=== PATIENT | male | born 1960 | race Caucasian/White ===

== ENCOUNTER → 2024-12-20 08:51 | Outpatient (BNVA) | payer MEDICAID, SELFPAY | PROVIDERS: Visit Provider Orthopaedic Surgery | DX: M79.642 Pain in left hand (principal); M79.641 Pain in right hand; M25.532 Pain in left wrist | CPT/HCPCS: 73130 ==

== ENCOUNTER → 2024-12-27 09:19 | Outpatient (BNVA) | payer MEDICAID, SELFPAY | PROVIDERS: PCP Family Medicine; Visit Provider Orthopaedic Surgery | DX: M23.51 Chronic instability of knee, right knee (principal); M25.561 Pain in right knee; M25.562 Pain in left knee | CPT/HCPCS: 73560; 73565 ==

== ENCOUNTER → 2025-01-19 08:50 | Outpatient (BNVA) | payer MEDICAID, SELFPAY | PROVIDERS: PCP Family Medicine; Visit Provider Family Medicine | DX: Z01.818 Encounter for other preprocedural examination (principal) | CPT/HCPCS: 81003 ==

== ENCOUNTER 2025-01-26 12:47 | Observation (INO) | payer MEDICAID, SELFPAY ==
[2025-01-26] VITALS (14 sets, daily range): BP systolic 96–189; BP diastolic 42–116; PULSE 65–77; RESP 16–18; TEMP 36.2–36.7; O2SAT 90–97; BMI 37.2
[2025-01-26 09:29] LABS: Basophils # 0.1 10^3/uL (0.0-0.1); Basophils % 0.7 %; Eosinophils # 0.4 10^3/uL (0.0-0.8); Eosinophils % 4.1 %; Hematocrit 45.3 % (37-53); Lymphocytes # 2.6 10^3/uL (0.8-4.8); Lymphocytes % 24.7 %; Mean Corpuscular HGB Conc 32.2 g/dL (30-55); Mean Corpuscular Hemoglobin 29.5 pg (27-33); Mean Corpuscular Volume 91.5 fl (82-101); Monocytes # 0.9 10^3/uL (0.2-0.9); Monocytes % 8.6 %; Neutrophils # 6.39 10^3/uL (1.8-7.7); Neutrophils % 60.9 %; Nucleated Red Blood Cells % 0 %; Platelet Count 327 10^3/cmm (157-399); Red Blood Count 4.95 10^6/uL (3.85-5.65); Red Cell Distribution Width 13.3 % (12.1-15.1); White Blood Count 10.48 10^3/uL (3.29-11.43)
--- NOTE | 2025-01-26 09:29 | W.PM.OPSUD ---
Surgery/Procedure H&P Update DATE OF PROCEDURE: January 26, 2025 DATE H&P PERFORMED: 01/26/25 H&P UPDATE INFORMATION: I have reviewed H&P completed within last 30 days, I have examined patient prior to procedure, No changes to prior documentation and Risks and benefits of the procedure reviewed PREOP DIAGNOSIS: End-stage degenerative joint disease of the right knee PLANNED PROCEDURE: Operation Date: 01/26/25 10:35 Proposed Procedures p RIGHT Total Knee Arthroplasty(Right) - Ludin Amaya MD
[2025-01-26] MEDS: sodium chloride 0.9% 1,000 ML 30 ML IV (09:48)
[2025-01-26 10:00] LABS: Anion Gap 15.2 (5-19); Blood Urea Nitrogen 14 mg/dL (8-23); Calcium 9.7 mg/dL (8.5-10.5); Carbon Dioxide 27 mmol/L (22-29); Chloride 102 mmol/L (98-107); Creatinine Clr Calc Pharmacy 130.6128; Glomerular Filtration Rate 113.9 mL/min (90-130); Glucose 111 mg/dL (65-115); Osmolality Calculated 289 mOsm/kg (285-295); Potassium 5.2 mmol/L (3.5-5.1); Sodium 139 mmol/L (136-145)
[2025-01-26] MEDS: ceFAZolin 2,000 mg SDV 2000 MG IVP ×2 (10:07→17:16)
--- NOTE | 2025-01-26 12:02 | XR_ITS ---
WS: [id number] Exam: XR knee RT 1-2V [id number] Date/Time of Exam: 01/26/2025 12:02 PM Reason For Exam: Total knee arthroplasty on the right Comparison 12/27/2024. A RIGHT total knee replacement is in satisfactory position. Postoperative changes in the adjacent soft tissues. Anterior surgical skin clips. XR/XR knee RT 1-2V [id number] IMPRESSION: 1. RIGHT total knee replacement in satisfactory position.
--- NOTE | 2025-01-26 12:14 | P.OP_ITS ---
Operative Report Date of procedure: January 26, 2025 Surgeon: Ludin Amaya MD Procedure: Preoperative diagnosis: End-stage degenerative joint disease of the right knee Postop diagnosis: Same Procedure: Right total knee arthroplasty Surgeon: Ludin Amaya MD Commercial Marketing Specialist: KYLEE Negrete's assistance was needed for positioning patient, assistance during the procedure itself. Closure of the wound and transfer the patient back to the PACU Anesthesia: Spinal Tourniquet time: 47 minutes at 250 mmHg EBL: 100 cc Indications: Mr. Lopez is a 64-year-old white male who presented the orthopedic clinics with debilitating right knee pain. He has been fighting this for quite some time now has been taking Diflucan for pain but this is not handling at this time. X-ray findings demonstrate [id number] presentation medial compartment osteoarthritic changes throughout the knee. He has failed all conservative measures and therefore at this time is been offered a total knee arthroplasty. All risk benefits treatment alternatives have been discussed with him and he is agreeable to proceed with surgical intervention at this time. Procedure: After obtaining the consent patient was transported to the operating room and placed on the operative table supine position. Subsequently spinal anesthetic was administered. Once Konieczny was achieved patient placed in a supine position. Pneumatic cuff placed around proximal right leg. And right leg was prepped and draped usual fashion. After surgical timeout and gravity exsanguination the pneumatic cuff is inflated 250 mmHg. With the foot in a foot holding device the knee was held in a flexed 90 degrees. Longitudinal incision made down the midline from superior pole the patella down the tibial tubercle. Sharp dissection taken down to the subcutaneous tissues electrocautery used for hemostasis. Knee was opened up along medial parapatellar incision line. Soft tissue was sharply breed including fat pad ACL and anterior horns of the menisci. Capsule was stripped from the medial portion of the proximal tibia to expose the knee further. Knee was then put up to full extension and patella was everted. Tissue was debrided around its periphery with electrocautery. Osteophytes were removed with a rongeur. Subsequently a patella reaming male was positioned and patella was reamed to 14 mm thickness. Knee was then flexed back to 90 degrees and patella put in the lateral gutter. Appropriate retractors placed including a PCL retractor to expose the proximal tibia. Tibial cutting guide was position with appropriate posterior slope. Set at a 2 mm cut off the most affected side that being medial. Once pinned in place and a small osteotome placed through the top of the tibial plateau and from the PCL to protect it a sagittal saw was then used to make tibial cut. Tibial cut was then removed piecemeal after box cut was made around the PCL insertion with a small osteotome. Once these were removed. PCL retractor was removed. Drill holes placed through the distal femur just anterior to the intercondylar notch. Guide winnie was then placed up the interventionally canal and distal cutting block to the femur was positioned and pinned in place. Distal cuts of the femur were made without any difficulties. Excess bone was removed rongeurs. Distal femur sized to size 9 femoral cutting block. Drill holes were placed for cutting block pegs. Size 9 cutting block was placed on the distal femur. Anterior posterior and chamfer cuts were made without any difficulties. Again excess osteophytes were removed with rongeur's. PCL retractor was placed again back into the knee exposing the proximal tibia. Excess soft tissues including menisci were completely removed from the joint line as they were well as any bone fragments. Knee is washed coachman out the Pulsavac irrigation at this point. Tibia size a size F tibial tray. It was positioned with an external guide winnie and then pinned in place. At this point a trial size 9 femur was p laced and impacted. Size 10 spacer was placed on the tibial tray of the hip and pinned in place in the posterior range of motion found to be stable, able to reach full extension as well as full flexion. No instability on varus valgus stressing. At this point trial components removed after drill holes placed with the distal femur trial. Once in place tibial tray trial was left in place drill holes were placed through the peg holes of the eventual permanent component. Punch was also used to make intramedullary canal for the post for the tibial component. These were all removed subsequently a permanent size F tibial tray was impacted. Subsequently a size 9 permanent implant was placed over the distal femur with the peg holes into the drill holes and impacted. Size 10 polyethylene spacer was then placed on the tray and locked in place. Knee put the range of motion under stable. With the leg up to full extension patella was everted. It was sized to size 38 patellar button. Drill guide was placed on the area 3. Drill holes placed. Subsequently 3 peg porous ingrowth patella was placed on the posterior patella and impacted with a patellar clamp. Once in place knee was put through range of motion found to be stable with good patellar tracking. Knee again was washed close not supposed advise irrigation. At this point pneumatic cuff is deflated after 47 minutes total tourniquet time and electrocautery used for hemostasis. Knee is placed on knee bump to allow for some slight flexion. Extensor mechanism repair with #1 Vicryl [id number] sutures. Subcutaneous tissue reapproximated 0 Vicryl interrupted sutures. Skin was closed with skin mariana. Wounds were cleaned and dried dressed with Silverlon occlusive dressing. Patient was then awaken transferred to cover room in stable condition
--- NOTE | 2025-01-26 12:51 | ANES.PREANE2 ---
Pre-Anesthetic Assessment Height/Weight: Height 1.73 m Weight 111.13 kg Temp Pulse Resp BP Pulse Ox O2 Del Method O2 Flow Rate 97.4 F L 66 16 135/72 97 Nasal Cannula 3 01/26/25 12:44 01/26/25 12:44 01/26/25 12:44 01/26/25 12:44 01/26/25 12:44 01/26/25 12:44 01/26/25 12:38 FiO2 3 01/26/25 12:44 Preop Diagnosis: End-stage degenerative joint disease of the right knee Operation Date: 01/26/25 10:35 Proposed Procedures p RIGHT Total Knee Arthroplasty(Right) - Ludin Amaya MD Familial anesthetic complications: None Was Beta Annie taken within 24 hours: N/A Was Clonidine taken within 24 hours: N/A Last intake: Intake Last Liquid Date 01/25/25 Last Liquid Time 22:00 Last Solid Date 01/25/25 Last Solid Time 20:30 Social Tobacco and No alcohol Exam alert, oriented x 3, clear to auscultation bilaterally and regular rate & rhythm CV/HEM Hypertension Anesthetic Plan ASA status: 3 Anesthesia: Regional (specify below) Risk of > 500 ml blood loss (7ml/kg in children): No Medications/Allergies Home Medications ?Medication ?Instructions ?Recorded ?Confirmed ?Last Taken ?Type diclofenac sodium 25 mg 25 mg PO BID 01/19/25 01/26/25 01/24/25 History tablet,delayed release losartan 50 mg tablet 50 mg PO DAILY 01/19/25 01/26/25 01/25/25 History Allergies Allergy/AdvReac Type Severity Reaction Status Date / Time No Known Allergies Allergy Verified 01/26/25 09:03 Current Medications Generic Name Dose Route Start Last Admin Trade Name Freq PRN Reason Stop Dose Admin Sodium Chloride 1,000 mls @ 30 mls/hr 01/26/25 09:00 01/26/25 11:00 Sodium Chloride 0.9% IV 01/27/25 08:59 Infused .Q24H GABRIELA Infusion PFSH Anesthesia Social History Smoking and tobacco/nicotine status: current every day tobacco/nicotine user Data Anesthesia 01/26/25 09:22 01/26/25 09:22 Short CBC 01/26/25 Range/Units 09:22 WBC 10.48 (3.29-11.43) 10^3/uL Hgb 14.60 (11.27-16.99) g/dL Hct 45.3 (37-53) % MCV 91.5 (82-101) fl Plt Count 327 (157-399) 10^3/cmm Neut % (Auto) 60.9 % Neut # (Auto) 6.39 (1.8-7.7) 10^3/uL BMP 01/26/25 09:22 Sodium 139 Potassium 5.2 H Chloride 102 Carbon Dioxide 27 BUN 14 Creatinine 0.7 Glucose 111 Calcium 9.7
--- NOTE | 2025-01-26 12:51 | SUR.PHASEI ---
Pt asked nurse Are you as kinky as your hair? Pt wagged finger at a nurse in a come here motion. The nurse came to bedside and asked what she could do for the pt. He stated I made you come with one finger.
--- NOTE | 2025-01-26 12:52 | ANES.PROC ---
Anesthesia Procedures Procedure/Date: 01/26/25 Nerve Block ^: Nerve Block 1: Main Anesthesia: spinal anesthesia block Time Out Performed: Yes Consent: requested by attending/covering physician Nerve block location: adductor canal (R) Anesthesia monitors applied: pulse oximetry, EKG, BP cuff and oxygen Nerve block position: supine Anesthetic Used: ropivicaine 0.5% (30 ml) and with decadron (4 mg) Ultrasound used to: recognize landmarks and visualize and ID femerol nerve Interscalene/Femoral BLK: 4 stimuplex 21 g needle used for position and inplane approach, visualize local anesthetic spread and no vascular puncture identified Injection: neg aspiration of heme Patient Tolerated Procedure: well Complications: none
--- NOTE | 2025-01-26 12:55 | ANE.PACU2 ---
Inpatient post-anesthesia follow up: Airway intact: Yes Vital signs: Temperature 97.1 F Pulse Rate 67 Respiratory Rate 16 Blood Pressure 143/78 Pulse Oximetry 93 Oxygen Delivery Me thod Room Air Oxygen Flow Rate 3 Fraction of Inspir ed Oxygen 3 Hydration adequate: Yes Nausea and vomiting: No Pain level: 1 Mental status: Baseline
--- NOTE | 2025-01-26 13:48 | PM.CONSULT ---
Providers/Reason For Consult Consulting Physician/Specialty*: Internal Medicine/Sydnie Colvin MD Reason for Consult*: Medical management of blood pressure Attending Physician: Ludin Amaya MD Primary Care Provider: Raúl Godwin History of Present Illness History of Present Illness Jordy Lopez is a 64 year old male with history of hypertension underwent right total knee replacement today. Medicine has been requested to follow for medical management Patient seen and room sitting up in bed. States he is doing well however is having pain in his knee. Has no other complaints at this time. Medications/Allergies Home Medications ?Medication ?Instructions ?Recorded ?Confirmed ?Last Taken ?Type diclofenac sodium 25 mg 25 mg PO BID 01/19/25 01/26/25 01/24/25 History tablet,delayed release losartan 50 mg tablet 50 mg PO DAILY 01/19/25 01/26/25 01/25/25 History Allergies Allergy/AdvReac Type Severity Reaction Status Date / Time No Known Allergies Allergy Verified 01/26/25 09:03 PFSH Acute PFSH: Social History Smoking and tobacco/nicotine status: current every day tobacco/nicotine user Vitals/I&O/Wt Last Vital Signs Temp 97.4 F L 01/26/25 12:44 Pulse 66 01/26/25 12:44 Resp 16 01/26/25 12:44 BP 135/72 01/26/25 12:44 Pulse Ox 97 01/26/25 12:44 O2 Del Method Room Air 01/26/25 12:59 O2 Flow Rate 3 01/26/25 12:38 FiO2 3 01/26/25 12:44 01/25/25 01/26/25 01/26/25 22:59 06:59 14:59 Intake Total 1700 / 1700 Output Total 75 / 75 Balance 1625 / 1625 Weight last 48 hrs Weight 111.13 kg Physical Exam Narrative: General: Alert oriented x3, patient seen sitting up in bed stating he has knee pain. HEENT: Normocephalic, atraumatic, EOMI, breathing room air Cardio: Regular rate rhythm, normal S1-S2, Respiratory: Good bilateral air entry, no wheezes no rhonchi appreciated GI: Abdomen soft, nontender, nondistended, bowel sounds + Extremities: Right knee covered in surgical bandage Frantz wrap, pulses present bilateral lower extremities. Data 01/26/25 09:22 01/26/25 09:22 A&P Assessment and plan (1) Hypertension: (2) Arthritis of right knee: (3) S/P total knee arthroplasty: Plan #Status post right total knee arthroplasty #History of arthritis right knee #Hypertension ? Continue home losartan 50 daily ? Check CBC BMP in a.m. ? Morphine 4 mg before hours as needed ? Ketorolac 15 mg every 6 hours as needed ? Hydrocodone 1 to 2 tablets every 4 hours as needed ? Aspirin 325 daily for DVT prophylaxis ? Patient has received empiric antibiotics cefazolin coverage. ? Medicine will be available to assist with any medical issues as they may arise. ? PT OT ? Discharge as per primary team instructions Thank you for this consultation. PDMP PDMP Reviewed: Not Reviewed Consult Attestations Medical Necessity Statement: Defer to primary team Diagnoses Hypertension I10 Arthritis of right knee M17.11 S/P total knee arthroplasty Z96.659
[2025-01-26] MEDS: acetaminophen 500 mg Tablet 1000 MG PO ×2 (14:16→21:32)
[2025-01-26] MEDS: ketorolac 30 mg/mL INJ 15 MG IVP (14:16)
[2025-01-26] MEDS: HYDROcodone-acetaminophen 7.5-325 mg Tablet PO ×2 (15:51→21:32)
[2025-01-26] MEDS: chlorhexidine gluconate 0.12% Btl 473 mL 30 ML MUCOUS MEM ×2 (17:13→21:35)
[2025-01-26] MEDS: sennosides-docusate Tablet 2 TAB PO (17:14)
[2025-01-26] MEDS: calcium carbonate 500 mg Chew Tablet 1000 MG PO (17:14)
[2025-01-26] MEDS: iron polysaccharide complex 150 mg Capsule PO (17:15)
[2025-01-26] MEDS: nicotine 21 mg Patch 1 PATCH TRANSDERMA (21:31)
[2025-01-27] VITALS (9 sets, daily range): BP systolic 167–202; BP diastolic 91–97; PULSE 70–78; RESP 16–18; TEMP 36.4–36.9; O2SAT 92–94
[2025-01-27] MEDS: ceFAZolin 2,000 mg SDV 2000 MG IVP ×2 (03:52→11:18)
[2025-01-27] MEDS: lactated ringers 1,000 ML 100 ML IV (03:58)
[2025-01-27] MEDS: HYDROcodone-acetaminophen 7.5-325 mg Tablet PO ×3 (04:03→18:24)
[2025-01-27 05:17] LABS: Basophils % 0.2 %; Hematocrit 37.1 % (37-53); Lymphocytes # 1.7 10^3/uL (0.8-4.8); Lymphocytes % 12.7 %; Mean Corpuscular HGB Conc 32.3 g/dL (30-55); Mean Corpuscular Hemoglobin 29.7 pg (27-33); Mean Corpuscular Volume 91.8 fl (82-101); Mean Platelet Volume 10.5 fL (7.4-10.4); Monocytes # 1.2 10^3/uL (0.2-0.9); Monocytes % 9.1 %; Neutrophils # 10.44 10^3/uL (1.8-7.7); Neutrophils % 77.3 %; Nucleated Red Blood Cells % 0 %; Platelet Count 304 10^3/cmm (157-399); Red Blood Count 4.04 10^6/uL (3.85-5.65); Red Cell Distribution Width 13.1 % (12.1-15.1); White Blood Count 13.52 10^3/uL (3.29-11.43)
[2025-01-27 05:39] LABS: Anion Gap 18.6 (5-19); Blood Urea Nitrogen 19 mg/dL (8-23); Calcium 8.9 mg/dL (8.5-10.5); Carbon Dioxide 21 mmol/L (22-29); Chloride 101 mmol/L (98-107); Creatinine Clr Calc Pharmacy 130.6128; Glomerular Filtration Rate 113.9 mL/min (90-130); Glucose 153 mg/dL (65-115); Osmolality Calculated 287 mOsm/kg (285-295); Potassium 4.6 mmol/L (3.5-5.1); Sodium 136 mmol/L (136-145)
[2025-01-27] MEDS: calcium carbonate 500 mg Chew Tablet 1000 MG PO ×2 (08:34→18:05)
[2025-01-27] MEDS: nicotine 21 mg Patch 1 PATCH TRANSDERMA (08:34)
[2025-01-27] MEDS: aspirin 325 mg EC Tablet PO (08:35)
[2025-01-27] MEDS: iron polysaccharide complex 150 mg Capsule PO ×2 (08:35→18:05)
[2025-01-27] MEDS: cholecalciferol (vitamin D3) 1,000 unit Tablet 1000 UNIT PO (08:35)
[2025-01-27] MEDS: multivitamin therapeutic Tablet 1 TAB PO (08:35)
[2025-01-27] MEDS: chlorhexidine gluconate 0.12% Btl 473 mL 30 ML MUCOUS MEM ×2 (08:35→21:03)
[2025-01-27] MEDS: sennosides-docusate Tablet 2 TAB PO ×2 (08:35→18:05)
[2025-01-27] MEDS: losartan 50 mg Tablet PO (08:35)
--- NOTE | 2025-01-27 09:19 | PM.MISC ---
Miscellaneous Note Note: seen today reports no acute issues labs reviewed. wbc 13.52, most likely reactive...continue to monitor, pt on cefazolin 2g q8h says he is in pain bp elevated overnight, i suspect secondary to pain i would continue regular home dose losartan 50 daily control pain will add hydralazine 10 iv q4h prn SBP > 170 lungs clear to auscultation abd soft non tender pt/ot per orthopedic surgery medicine will continue to follow please count this as progress note for today
[2025-01-27] MEDS: mupirocin oint 22 gm 1 APPLIC NASAL (10:45)
--- NOTE | 2025-01-27 11:07 | PC.CHAP ---
Pastoral Care Encounter/Spiritual Assessment Type of Contact [] Declined barber stylist visit [] Patient/Family/Request visit [] Outpatient visit [] Follow-up visit [] Physician referral [] Code/Alert [x] Routine visit [] Staff referral [] Actively dying [] Patient sleeping [] Family support [] [] Out of room [] Palliative care [] [] Receiving care in room [] Pre-surgical visit [] Trauma [] Long length of stay [] ICU visit [] Other: Relational/Emotional Strength [x] Patient feels connected with others/family/visitors/staff [] Distress [] Loneliness/isolation [] Abandonment Spirituality of Patient [x] Person of Mari [x] Attends Advent of their [place] [x] Believes in Prayer [] Reads Bible or Muslim materials [] There are Spiritual issues to be addressed Employment Clerk Interventions [x] Prayer [x] Active listening [] Non-anxious presence [x] Spiritual/emotional support [] Crisis/trauma care [] Spiritual counseling [] Bereavement support [] Provided bereavement packet [] Provided Bible/devotional materials [] Provided toy/stuffed animal, coloring book to patient or family member [] Provided Communion [] Anointing/[place] [] Salvation [x] Completed spiritual assessment [] Other: Impact on Illness or Injury [] Angry [] Fearful [] Anxious [] Often cries [] Exhaustion [] Unable to work [] Unable to attend anglican [] Unable to walk/stand [] Unable to read [] Unable to drive [] Unable to eat/drink [] Unable to sleep [] Unable to be with family [] Patient intubated [] Other: Summary Time spent with patient 15 min
[2025-01-27] MEDS: hyDRALAzine 20 mg/mL INJ 1 mL 10 MG IVP (12:43)
[2025-01-27] MEDS: ketorolac 30 mg/mL INJ 15 MG IVP (12:43)
[2025-01-27] MEDS: morphine 4 mg/mL SDV 1 mL IVP ×2 (14:16→21:03)
--- NOTE | 2025-01-27 17:18 | P.PN_ITS ---
Subjective 2 Subjective: This is a 64-year-old male patient, who is postoperative day 1 after right total knee arthroplasty. Patient was admitted to the [facility] floor via observation and has done well, overall, postoperatively. He has worked with therapy services and is ambulating with the assistance of a walker. His postoperative pain has been controlled well with medications here in the hospital. His postoperative dressings are intact and in place. 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 Patient also has had significant elevation in his blood pressure. He does have known diagnosis of hypertension and takes losartan 50 mg daily however, this is continued to be elevated here in the hospital despite treatment. He is being monitored by the hospitalist service for this. Medications: Reviewed: Yes Vitals/I&O/Wt Last Vital Signs Temp 98 F 01/27/25 15:58 Pulse 70 01/27/25 15:58 Resp 18 01/27/25 15:58 BP 181/94 01/27/25 15:58 Pulse Ox 94 01/27/25 15:58 O2 Del Method Room Air 01/27/25 15:58 O2 Flow Rate 3 01/26/25 12:38 FiO2 3 01/26/25 12:44 01/27/25 01/27/25 01/27/25 06:59 14:59 22:59 Intake Total 450 / 2630 2200 / 2200 Output Total 800 / 800 Balance 450 / 2305 1400 / 1400 Weight last 48 hrs Weight 256 lb Weight 245 lb Physical Exam 2 Const: COMMON NORMALS: no acute distress, average body habitus, patient oriented x3, no limitations, alert and well nourished GENERAL APPEARANCE: c ooperative; not anxious and not combative ORIENTATION/CONSCIOUSNESS: Yes awake, Yes oriented to person, Yes oriented to place and Yes oriented to time HENMT: COMMON NORMALS: normocephalic and atraumatic HEAD & SCALP: n ormocephalic and atraumatic Resp: COMMON NORMALS: normal respiratory effort and No use of accessory muscles Extremity: RIGHT LOWER EXTREMITY: Yes knee joint (Large bulky, outer dressing removed.) Right knee: Yes inspection ( Postoperative dressing with moderate dry drainage. Moderate swelling.), Yes palpation (Mild TTP to distal quad and anterior knee.), Yes ROM (Able to straight leg raise) and Yes neurovascular exam (Sensation intact to light touch. Rapid cap refill.) and Yes lower leg Right lower leg: Yes special tests (Lower leg swelling noted. No erythema or TTP to posterior calf. ) Right lower leg special tests: Darius's sign: Negative Neuro: COMMON NORMALS: patient oriented x3 SENSORIUM/ORIENTATION: Yes alert, Yes oriented to person, Yes oriented to place and Yes oriented to time Psych: ATTITUDE: Yes engaged Skin: COMMON NORMALS: no rashes or lesions noted, turgor normal and no jaundice GENERAL SKIN EXAM: no rashes or lesions noted and turgor normal Data 01/27/25 04:34 01/27/25 04:34 A&P Assessment and plan (1) S/P total knee arthroplasty: At this time, the patient is doing well orthopedically and is ambulating well with a walker. His postoperative pain has been controlled. We will plan to discontinue his scheduled Tylenol to allow him to continue his hydrocodone on a regular basis while inpatient. This will allow him for consistent transition to oral medications only. His dressing does have significant discharge. For this we will have nursing services remove his postoperative bandage, and replace it with a new Silverlon dressing. Patient does have significant swelling to the right lower extremity however, the patient expresses that he has a history of lymphedema and this is his normal he will continue to ice and elevate and we will replace compression dressing. As patient is doing well orthopedically, he is fit for orthopedic discharge however, he continues to have episodes of uncontrolled hypertension despite medical intervention. This was discussed with the hospitalist and it was felt the patient should continue to be monitored overnight. Hospitalist will continue to manage his hypertension. If the patient continues to do well orthopedically and we are able to get his pressures controlled, plan is for orthopedic discharge once medically cleared. We will continue to follow until discharge. PDMP PDMP Reviewed: Not Reviewed Attestations 2 Medical Necessity Statement*: Patient will require to remain observation and continue hospitalization for continued medical observation and postoperative discharge planning after total knee arthroplasty. Coding Level of Care Code Acute Code for Chg Fwd Diagnoses Status post total right knee replacement Z96.651 Laterality: right
[2025-01-27] MEDS: carvedilol 3.125 mg Tablet PO (18:05)
[2025-01-28] VITALS (7 sets, daily range): BP systolic 167–197; BP diastolic 78–110; PULSE 74–84; RESP 16–19; TEMP 36.5–37.1; O2SAT 92–94
[2025-01-28] MEDS: hyDRALAzine 20 mg/mL INJ 1 mL 10 MG IVP (01:33)
[2025-01-28] MEDS: HYDROcodone-acetaminophen 7.5-325 mg Tablet PO ×3 (01:35→15:04)
[2025-01-28 06:13] LABS: Basophils # 0.1 10^3/uL (0.0-0.1); Basophils % 0.4 %; Eosinophils # 0.2 10^3/uL (0.0-0.8); Eosinophils % 1.5 %; Hematocrit 37.1 % (37-53); Lymphocytes # 3.1 10^3/uL (0.8-4.8); Lymphocytes % 21.6 %; Mean Corpuscular HGB Conc 33.2 g/dL (30-55); Mean Corpuscular Hemoglobin 30.1 pg (27-33); Mean Corpuscular Volume 90.9 fl (82-101); Mean Platelet Volume 9.9 fL (7.4-10.4); Monocytes # 1.7 10^3/uL (0.2-0.9); Monocytes % 12.1 %; Neutrophils # 9.05 10^3/uL (1.8-7.7); Neutrophils % 63.4 %; Nucleated Red Blood Cells % 0 %; Platelet Count 289 10^3/cmm (157-399); Red Blood Count 4.08 10^6/uL (3.85-5.65); Red Cell Distribution Width 13.4 % (12.1-15.1); White Blood Count 14.29 10^3/uL (3.29-11.43)
[2025-01-28] MEDS: cholecalciferol (vitamin D3) 1,000 unit Tablet 1000 UNIT PO (08:15)
[2025-01-28] MEDS: calcium carbonate 500 mg Chew Tablet 1000 MG PO (08:15)
[2025-01-28] MEDS: carvedilol 3.125 mg Tablet PO (08:15)
[2025-01-28] MEDS: multivitamin therapeutic Tablet 1 TAB PO (08:15)
[2025-01-28] MEDS: losartan 50 mg Tablet 100 MG PO (08:16)
[2025-01-28] MEDS: iron polysaccharide complex 150 mg Capsule PO (08:16)
[2025-01-28] MEDS: aspirin 325 mg EC Tablet PO (08:16)
[2025-01-28] MEDS: sennosides-docusate Tablet 2 TAB PO (08:16)
[2025-01-28] MEDS: nicotine 21 mg Patch 1 PATCH TRANSDERMA (08:16)
--- NOTE | 2025-01-28 10:44 | P.PN_ITS ---
Subjective 2 Subjective: White count 14,000. Blood pressure elevated overnight. Coreg was added yesterday and losartan was increased. Patient states that even at home his blood pressure runs high and is at 180s to 190s. He is requesting to go home. I discussed with him that we will monitor his blood pressure daily afternoon and see how he does. I discussed with him the risk of stroke with such a high blood pressure. Patient went on to jokingly say he does not have a brain. Vitals/I&O/Wt Last Vital Signs Temp 97.7 F 01/28/25 08:00 Pulse 79 01/28/25 08:00 Resp 18 01/28/25 08:00 BP 197/85 01/28/25 08:16 Pulse Ox 92 01/28/25 08:00 O2 Del Method Room Air 01/28/25 08:00 O2 Flow Rate 3 01/26/25 12:38 FiO2 3 01/26/25 12:44 01/27/25 01/28/25 01/28/25 22:59 06:59 14:59 Intake Total 720 / 2920 720 / 3640 720 / 720 Output Total 600 / 1400 900 / 2300 800 / 800 Balance 120 / 1520 -180 / 1340 -80 / -80 Weight last 48 hrs Weight 116.12 kg Weight 116.12 kg Physical Exam 2 Narrative: General: Alert oriented x3, HEENT: Normocephalic, atraumatic, EOMI, breathing room air Cardio: Regular rate rhythm, normal S1-S2, Respiratory: Good bilateral air entry, no wheezes no rhonchi appreciated GI: Abdomen soft, nontender, nondistended, bowel sounds + Extremities: Right knee covered in surgical bandage Frantz wrap, pulses present bilateral lower extremities. Data 01/28/25 06:00 01/27/25 04:34 A&P Assessment and plan (1) Hypertension: (2) Arthritis of right knee: (3) S/P total knee arthroplasty: Plan #Status post right total knee arthroplasty #History of arthritis right knee #Hypertension ? Continue home losartan 50 daily ? Check CBC BMP in a.m. ? Morphine 4 mg before hours as needed ? Ketorolac 15 mg every 6 hours as needed ? Hydrocodone 1 to 2 tablets every 4 hours as needed ? Aspirin 325 daily for DVT prophylaxis ? Patient has received empiric antibiotics cefazolin coverage. ? Medicine will be available to assist with any medical issues as they may arise. ? PT OT ? Discharge as per primary team instructions Thank you for this consultation. 01/28/2025 Continue Coreg 3.125 twice daily Add amlodipine 10 daily Increase losartan to 100 daily Monitor blood pressure towards the afternoon if systolic closer to 150-160 range patient may discharge home from medical standpoint. He is to follow-up with his primary care doctor within the next 1 to 3 days for optimization of blood pressure medications Recommend him to keep a blood pressure log sheet and check his blood pressure morning and evening and take to primary care doctor. Knee pain is definitely contributing to hypertension at this point. However if patient's blood pressure remains greater than 180 systolic I would not recommend discharge as he will need further optimization of medications. PDMP PDMP Reviewed: Not Reviewed Attestations 2 Medical Necessity Statement*: Defer to primary team Diagnoses Hypertension I10 Arthritis of right knee M17.11 Status post total right knee replacement Z96.651 Laterality: right
[2025-01-28] MEDS: amlodipine 10 mg Tablet PO (11:12)
--- NOTE | 2025-01-28 15:12 | PC.OT ---
Pt declined OT treatment session due to being upset that he hasn't been discharged from hospital yet. Pt reports 9/10 solid pain in left knee. Washes face with set-up assist in bed. Pt declines to sit at EOB or to perform ADLs at sink.
[2025-01-28 16:27] LABS: Basophils # 0.1 10^3/uL (0.0-0.1); Basophils % 0.6 %; Eosinophils # 0.3 10^3/uL (0.0-0.8); Eosinophils % 2.2 %; Hematocrit 38.9 % (37-53); Lymphocytes # 2.6 10^3/uL (0.8-4.8); Lymphocytes % 19.1 %; Mean Corpuscular HGB Conc 32.9 g/dL (30-55); Mean Corpuscular Volume 91.1 fl (82-101); Mean Platelet Volume 10.1 fL (7.4-10.4); Monocytes # 1.8 10^3/uL (0.2-0.9); Monocytes % 13.2 %; Neutrophils # 8.79 10^3/uL (1.8-7.7); Neutrophils % 63.7 %; Nucleated Red Blood Cells % 0 %; Platelet Count 304 10^3/cmm (157-399); Red Blood Count 4.27 10^6/uL (3.85-5.65); Red Cell Distribution Width 13.6 % (12.1-15.1); White Blood Count 13.79 10^3/uL (3.29-11.43)
--- NOTE | 2025-01-28 16:56 | PM.DCS ---
Discharge Providers Date of Admission: 01/26/25 12:47 Date of Discharge: January 28, 2025 Attending Provider at Admission: Ludin Amaya MD Attending Provider at Discharge: Ludin Amaya MD Primary Care Provider: Raúl Godwin Diagnoses at Discharge Discharge Diagnosis (1) S/P total knee arthroplasty: Status: Acute Qualifiers: Laterality: right Qualified Code(s): Z96.651 - Presence of right artificial knee joint Permanent problem details: Date of procedure: January 26, 2025 Surgeon: Ludin mAaya MD Preoperative diagnosis: End-stage degenerative joint disease of the right knee Procedure: Right total knee arthroplasty Surgeon: Ludin Amaya MD (2) Hypertension: Status: Acute (3) Arthritis of right knee: Status: Resolved Reason for Visit Reason for Visit: M25.569 Brief History: Mr. Lopez is a 64-year-old white male who presented the orthopedic clinic with debilitating right knee pain. He has been fighting this for quite some time now has been taking diclofenac for pain but this is not handling at this time. X-ray findings demonstrate [id number] presentation medial compartment osteoarthritic changes throughout the knee. He has failed all conservative measures and therefore at this time had been offered a total knee arthroplasty. All risk benefits treatment alternatives have been discussed with him and he is agreeable to proceed with surgical intervention at this time. On January 26, 2025, the patient was taken to the hospital and underwent successful right total knee arthroplasty. Patient was admitted for observation subsequently postoperatively. Hospital Course Hospital Course The patient was admitted for observation status post right total knee arthroplasty on January 26, 2025. On postoperative day 1, the patient was felt to be doing well in orthopedic standpoint and was ambulating with physical therapy and working with services well. His pain was controlled with the use of oral medications and incision was healing nicely. Unfortunately, the patient had significantly elevated systolic and diastolic blood pressure, for that reason he was kept overnight again for continued monitoring by the medical service, per the hospitalist recommendation. Today, postoperative day 2, the patient continues to do well orthopedically and is ambulating with the assistance of a walker with therapy services. He has been doing well. He does have some moderate swelling to the right lower extremity however, the patient has a history of lymphedema and this is his normal. The calf is soft and nontender, without evidence of DVT. There are no current signs of infection. On postoperative day 2, the patient's blood pressure is somewhat more controlled with the addition of medications from the medical service. After discussion with hospitalist team, it was decided that patient was stable for discharge with the continuance of additional blood pressure medications. The patient will be discharged today. Follow-up with primary care in 1 week for continued monitoring of his blood pressure. He will follow-up in the orthopedic clinic in 2 weeks for postoperative evaluation. Physical Exam Const: COMMON NORMALS: no acute distress, average body habitus, patient oriented x3, no limitations, alert and well nourished GENERAL APPEARANCE: cooperative; not anxious and not combative ORIENTATION/CONSCIOUSNESS: Yes awake, Yes oriented to person, Yes oriented to place and Yes oriented to time HENMT: COMMON NORMALS: normocephalic and atraumatic HEAD & SCALP: normocephalic and atraumatic Resp: COMMON NORMALS: normal respiratory effort and No use of accessory muscles Cardio: OTHER: Denies shortness of breath, chest discomfort or difficulty breathing postoperatively. Extremity: RIGHT LOWER EXTREMITY: Yes knee joint (Large bulky, outer dressing removed.) Right knee: Yes inspection ([place] dressing clean, dry and intact. Moderate swelling.), Yes palpation (Mild TTP to distal quad and anterior knee.), Yes ROM (Able to straight leg raise), Yes neurovascular exam (Sensation intact to light touch. Rapid cap refill.) and Yes other (Patient has history and known lymphedema to right lower extremity) and Yes lower leg Right lower leg: Yes special tests (Lower leg swelling noted. No erythema or TTP to posterior calf. ) Right lower leg special tests: Darius's sign: Negative Neuro: COMMON NORMALS: patient oriented x3 SENSORIUM/ORIENTATION: Yes alert, Yes oriented to person, Yes oriented to place and Yes oriented to time Psych: ATTITUDE: Yes engaged Skin: COMMON NORMALS: no rashes or lesions noted, turgor normal and no jaundice GENERAL SKIN EXAM: no rashes or lesions noted and turgor normal Discharge Data Studies Completed and Pending Completed Studies During Hospitalization Category Date Time Status XR knee RT 1-2V 50211 Routine Exams 01/26/25 12:02 Completed Pending at discharge Category Date Time Status Complete Blood Count w/Auto AM LABS Lab 01/29/25 04:00 Uncollected Radiology Impressions Knee X-Ray 01/26/25 12:02 IMPRESSION: 1. RIGHT total knee replacement in satisfactory position. Laboratory Results WBC 13.79 10^3/uL (3.29-11.43) H 01/28/25 16:18 RBC 4.27 10^6/uL (3.85-5.65) 01/28/25 16:18 Hgb 12.80 g/dL (11.27-16.99) 01/28/25 16:18 Hct 38.9 % (37-53) 01/28/25 16:18 MCV 91.1 fl (82-101) 01/28/25 16:18 MCH 30.0 pg (27-33) 01/28/25 16:18 MCHC 32.9 g/dL (30-55) 01/28/25 16:18 RDW 13.6 % (12.1-15.1) 01/28/25 16:18 Plt Count 304 10^3/cmm (157-399) 01/28/25 16:18 MPV 10.1 fL (7.4-10.4) 01/28/25 16:18 Neut % (Auto) 63.7 % 01/28/25 16:18 Lymph % (Auto) 19.1 % 01/28/25 16:18 [place] % (Auto) 13.2 % 01/28/25 16:18 Eos % (Auto) 2.2 % 01/28/25 16:18 Baso % (Auto) 0.6 % 01/28/25 16:18 Neut # (Auto) 8.79 10^3/uL (1.8-7.7) H 01/28/25 16:18 Lymph # (Auto) 2.6 10^3/uL (0.8-4.8) 01/28/25 16:18 [place] # (Auto) 1.8 10^3/uL (0.2-0.9) H 01/28/25 16:18 Eos # (Auto) 0.3 10^3/uL (0.0-0.8) 01/28/25 16:18 Baso # (Auto) 0.1 10^3/uL (0.0-0.1) 01/28/25 16:18 Nucleated RBC % (auto) 0 % 01/28/25 16:18 Nucleated RBCs # 0.0 /100WBC 01/28/25 16:18 Sodium 136 mmol/L (136-145) 01/27/25 04:34 Potassium 4.6 mmol/L (3.5-5.1) 01/27/25 04:34 Chloride 101 mmol/L (98-107) 01/27/25 04:34 Carbon Dioxide 21 mmol/L (22-29) L 01/27/25 04:34 Anion Gap 18.6 (5-19) 01/27/25 04:34 BUN 19 mg/dL (8-23) 01/27/25 04:34 Creatinine 0.7 mg/dL (0.7-1.2) 01/27/25 04:34 GFR Calculation 113.9 mL/min (90-130) 01/27/25 04:34 Glucose 153 mg/dL (65-115) H 01/27/25 04:34 Calculated Osmolality 287 mOsm/kg (285-295) 01/27/25 04:34 Calcium 8.9 mg/dL (8.5-10.5) 01/27/25 04:34 Vitals Last Vital Signs Temp 98.7 F 01/28/25 15:53 Pulse 84 01/28/25 15:53 Resp 18 01/28/25 15:53 BP 168/78 01/28/25 15:53 Pulse Ox 94 01/28/25 15:53 O2 Del Method Room Air 01/28/25 15:53 O2 Flow Rate 3 01/26/25 12:38 FiO2 3 01/26/25 12:44 Discharge Plan Discharge Patient Disposition: Home Condition: Stable Prescriptions: New hydrocodone-acetaminophen 5-325 mg tablet 1 tab PO Q6H PRN (Reason: pain) Qty: 20 0RF aspirin 325 mg Tablet,Delayed Release (Dr/Ec) 325 mg PO DAILY 30 Days Qty: 30 0RF amlodipine 10 mg Tablet 10 mg PO DAILY Qty: 14 0RF Rx Instructions: Reduce to 5 mg daily if systolic pressure is below 130. losartan 50 mg Tablet 100 mg PO DAILY Qty: 14 0RF carvedilol 3.125 mg Tablet 3.125 mg PO BID Qty: 28 0RF Continued diclofenac sodium 25 mg tablet,delayed release (DR/EC) 25 mg PO BID Held losartan 50 mg tablet 50 mg PO DAILY Hold Instructions: pending eval with PCP. Discharge Orders: Discharge Order (Routine); Ordered 01/28/25 Ordered By: Kyleigh Hernandez Other Ambulatory Orders: DME: Walker (Order) Location: None Selected Ordered By: Ludin Amaya Referrals: Ludin Amaya MD [Physician, Orthopedics] - 02/10/25 10:00 am Raúl Godwin [Primary Care Provider, [facility]] - 02/01/25 1:00 pm Referral Note: Follow up for HTN with Susy Lewis NP. Discharge Diet: Advance as tolerated Discharge Activity: Increase activity as tolerated, Use walker/crutches as instructed and As per PT/OT instructions Patient Instructions: Acute Wound Care (DC), Total Knee Replacement (GEN), Opioid Safety, Post Anesthesia Care Activity Restrictions/Additional Instructions: Ice and elevation to right lower extremity. You may ambulate weightbearing as tolerated. Work with physical therapy for range of motion, strengthening, and gait training. Do not bathe or directly submerge the incision. May perform hygiene and personal care without removing postoperative dressing or getting wet. If your outer dressing begins to leak, you may remove it. Otherwise, we will remove the dressing in the clinic. Keep a home blood pressure log. Monitor pressures daily. Take new medications as prescribed. If the systolic (top number) becomes lower than 130, lower the amlodipine dosing from 10 mg to 5 mg daily. Keep upcoming appointment with primary care office for follow-up of hypertension and for medication monitoring/adjustment Discharge Attestations Time Spent in Discharge Care*: greater than 30 min Quality Metrics Clinical Quality Measures [ No reported AMI, CVA or VTE this stay] Coding Level of Care Code Acute Code for Chg Fwd Diagnoses Status post total right knee replacement Z96.651 Laterality: right Hypertension I10 Arthritis of right knee M17.11
== END 2025-01-28 17:50 | disposition home or self-care (01) ==
LOC: MEDSURG 12:48
PROVIDERS: Anesthesiology; Internal Medicine; Admitting Provider Orthopaedic Surgery; PCP Family Medicine; Visit Provider Orthopaedic Surgery
PROC: (CPT 27447; principal; 2025-01-26 10:15)
DX: M17.11 Unilateral primary osteoarthritis, right knee (principal); I10 Essential (primary) hypertension; F17.200 Nicotine dependence, unspecified, uncomplicated; D72.829 Elevated white blood cell count, unspecified
CPT/HCPCS: 27447; 36415; 73560; 80048; 85025; 97110; 97116; 97161; 97165; A4216; C1776; G0378; J0360; J0690; J1100; J1885; J2250; J2270; J2704; J2795; J7030; J7120; J9999; P9045

== ENCOUNTER → 2025-02-10 09:29 | Outpatient (BNVA) | payer MEDICAID, SELFPAY | PROVIDERS: PCP Family Medicine; Visit Provider Orthopaedic Surgery | DX: Z98.890 Other specified postprocedural states (principal); Z96.651 Presence of right artificial knee joint | CPT/HCPCS: 73560; 73565 ==